=== PATIENT | female | born 1995 | race Caucasian/White ===

== ENCOUNTER → 2016-08-03 | Day surgery (SDC) | payer OTHER ==
[~2016-08-03] VITALS: Ht 149.9 cm; Wt 61.2 kg
[~2016-08-03] MED LIST: ADVIL200 MG PO; GILDESS FE PO; ZOFRAN4 M1 PO
--- NOTE | 2016-08-04 15:03 | Operative Report ---
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 Pt was preprd and draped in the usual sterile fashon. LASER precautions were observed. 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 hemostasis was excellent with monsoles solution. there were no complications or adventitious zamudio. the pt was awakened and moved to the recovery room in good condition.
== END ==
LOC: STS 07-31 07:00
DX: N87.1 Moderate cervical dysplasia (principal); F17.200 Nicotine dependence, unspecified, uncomplicated
CPT/HCPCS: 81025; J2250